=== PATIENT | female | born 2000 | race African-American/Black ===

== ENCOUNTER 2024-11-10 07:41 | Emergency (ER) | payer OTHER ==
[~2024-11-10] VITALS: Ht 160 cm; Wt 90.7 kg
[2024-11-10 08:26] VITALS: TEMP 98.1
[2024-11-10] MEDS ORDERED: AMOX TR-K CLV1 EAC2 PO (08:52)
[2024-11-10 09:01] VITALS: PULSE 48; RESP 18; O2SAT 100
== END 2024-11-10 09:08 | disposition home or self-care (01) ==
LOC: ER 07:51
DX: K02.9 Dental caries, unspecified (principal); S02.5XXA Fracture of tooth (traumatic), initial encounter for closed fracture; H92.01 Otalgia, right ear
CPT/HCPCS: 99282